=== PATIENT | female | born 1975 | race Caucasian/White ===

== ENCOUNTER → 2016-04-04 | Outpatient (CLI) | payer OTHER ==
[2016-04-04 14:53] LABS: BILIRUBIN,URINE NEGATIVE (NEG); CLARITY,URINE CLEAR (CLEAR); GLUCOSE, URINE (UA) NEGATIVE (NEG); LEUKOCYTE ESTERASE ,URINE TRACE (NEG); NITRATE,URINE NEGATIVE (NEG); OCCULT BLOOD,URINE NEGATIVE (NEG); PH,URINE 6.5 (5.0-8.5); PROTEIN,URINE NEGATIVE (NEG)
[2016-04-04 14:54] LABS: URINE SAMPLE TYPE CLEAN CATCH URINE
[2016-04-04 15:07] LABS: BACTERIA,URINE FEW; SQUAMOUS EPITHELIAL CELL,UR MODERATE
== END ==
LOC: LAB 14:35
PROVIDERS: ATTEND Student in an Organized Health Care Education/Training Program
DX: R82.71 Bacteriuria (principal)
CPT/HCPCS: 81001

== ENCOUNTER → 2016-04-17 | Outpatient (CLI) | payer OTHER ==
[2016-04-17 15:29] LABS: HEMATOCRIT 45.3 % (37.0-47.0); HEMOGLOBIN 15.7 g/dL (12.0-16.0); MEAN CORPUSCULAR HEMOGLOBIN 30.1 PG (27-31); MEAN CORPUSCULAR HGB CONC 34.7 g/dL (33-37); MEAN PLATELET VOLUME 9.8 FL (7.4-12.2); RDW COEFFICIENT OF VARIATION 14.4 % (11.5-14.5); RED BLOOD COUNT 5.21 10^6/uL (4.20-5.40); WHITE BLOOD COUNT 9.9 10^3/uL (4.8-10.8)
[2016-04-17 15:32] LABS: BILIRUBIN,URINE NEGATIVE (NEG); CLARITY,URINE CLEAR (CLEAR); GLUCOSE, URINE (UA) NEGATIVE (NEG); LEUKOCYTE ESTERASE ,URINE NEGATIVE (NEG); NITRATE,URINE NEGATIVE (NEG); OCCULT BLOOD,URINE LARGE (NEG); PH,URINE 7.5 (5.0-8.5); PROTEIN,URINE NEGATIVE (NEG)
[2016-04-17 15:48] LABS: URINE SAMPLE TYPE CLEAN CATCH URINE
[2016-04-17 15:50] LABS: SQUAMOUS EPITHELIAL CELL,UR FEW; WBC,URINE 0-3
== END ==
LOC: LAB 15:01
DX: Z01.812 Encounter for preprocedural laboratory examination (principal); M16.12 Unilateral primary osteoarthritis, left hip
CPT/HCPCS: 81001; 85027

== ENCOUNTER → 2016-05-23 | Outpatient (CLI) | payer OTHER ==
--- NOTE | 2016-05-25 22:36 | DI ---
US UP/LOW EXT VEINS U/L OR LTD,05/23/2016 2:15 PM: Clinical History: Left calf pain Previous Exam: None at this facility. Findings: Multiple grayscale and color Doppler sonographic images are obtained of the deep veins of the left la rge cavity, and demonstrate complete coaptation upon graded compression without echogenic thrombus. T here is normal Doppler waveforms. There is no evidence of fluid collection. Impression: No evidence of deep venous thrombosis.
== END ==
LOC: US 14:11
PROVIDERS: ATTEND Orthopaedic Surgery Adult Reconstructive Orthopaedic Surgery
DX: G89.18 Other acute postprocedural pain (principal); M79.662 Pain in left lower leg; Z98.890 Other specified postprocedural states
CPT/HCPCS: 93971

== ENCOUNTER → 2016-07-08 | Outpatient (CLI) | payer OTHER ==
[2016-07-08 16:43] LABS: HEMOGLOBIN A1C 5.67 % (4.2-6.0)
[2016-07-11 10:43] LABS: TTG AB IGA <1.2 U/mL (())
[2016-07-15 20:01] LABS: IGA, SERUM 273 mg/dL (61 - 356)
== END ==
LOC: MOB LAB 15:24
PROVIDERS: ATTEND Student in an Organized Health Care Education/Training Program
DX: R73.9 Hyperglycemia, unspecified (principal); R53.83 Other fatigue; A09 Infectious gastroenteritis and colitis, unspecified
CPT/HCPCS: 36415; 81376; 82784; 83036

== ENCOUNTER → 2016-07-09 | Outpatient (CLI) | payer OTHER | LOC: LAB 12:39 | PROVIDERS: ATTEND Student in an Organized Health Care Education/Training Program | DX: A09 Infectious gastroenteritis and colitis, unspecified (principal) | CPT/HCPCS: 87046; 87493 ==